=== PATIENT | female | born 1960 | race Caucasian/White ===

== ENCOUNTER 2022-01-02 14:26 | Outpatient (CLI) | payer BC | END 2022-01-02 14:27 | disposition home or self-care (01) | LOC: CSHMAMMO 14:26 | PROVIDERS: ATTEND Obstetrics & Gynecology | DX: Z12.31 Encounter for screening mammogram for malignant neoplasm of breast (principal) | CPT/HCPCS: 77063; 77067 ==

== ENCOUNTER 2023-01-29 13:38 | Outpatient (CLI) | payer BC | END 2023-01-29 13:39 | disposition home or self-care (01) | LOC: CSHMAMMO 13:38 | PROVIDERS: ATTEND Obstetrics & Gynecology | DX: Z12.31 Encounter for screening mammogram for malignant neoplasm of breast (principal) | CPT/HCPCS: 77063; 77067 ==

== ENCOUNTER 2024-02-02 08:09 | Outpatient (CLI) | payer BC | END 2024-02-02 08:10 | disposition home or self-care (01) | LOC: CSHMAMMO 08:09 | PROVIDERS: ATTEND Obstetrics & Gynecology | DX: Z12.31 Encounter for screening mammogram for malignant neoplasm of breast (principal) | CPT/HCPCS: 77063; 77067 ==